=== PATIENT | male | born 1980 | race American Indian/Alaskan Native ===

== ENCOUNTER 2021-03-24 15:06 | Emergency (ER) | payer SELFPAY | END 2021-03-24 15:11 | disposition left against medical advice (07) | LOC: ED 15:06 | DX: M79.605 Pain in left leg (principal); Z53.21 Procedure and treatment not carried out due to patient leaving prior to being seen by health care provider ==

== ENCOUNTER 2021-03-24 22:31 | Emergency (ER) | payer SELFPAY ==
[2021-03-24 23:34] VITALS: BP 121/90
[2021-03-25] MEDS ORDERED: HYDROcodone/ACETAMINOPHEN 5-325 MG TAB PO ONE (03:46)
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
== END 2021-03-25 05:26 | disposition home or self-care (01) ==
LOC: ED 22:31
DX: N39.0 Urinary tract infection, site not specified (principal); F25.0 Schizoaffective disorder, bipolar type; R10.9 Unspecified abdominal pain; Z79.899 Other long term (current) drug therapy; V09.9XXA Pedestrian injured in unspecified transport accident, initial encounter; Y92.410 Unspecified street and highway as the place of occurrence of the external cause; Y93.89 Activity, other specified; Y99.8 Other external cause status

== ENCOUNTER 2021-04-03 00:40 | Emergency (ER) | payer SELFPAY ==
[2021-04-03] MEDS ORDERED: LIDOCAINE (1%) 10 MG/1 ML VIAL 20 ML MDV INFILTRATI ONE (05:05)
[2021-04-03] MEDS ORDERED: IBUPROFEN 600 MG TAB PO ONE (05:05)
[2021-04-03] MEDS ORDERED: TETANUS,DIPH,PERTUSS(ACELL) VACCINE 0.5 ML SYRINGE IM ONE (05:05)
[2021-04-03 05:07] VITALS: BP 141/98
[2021-04-03] MEDS ORDERED: NEOMY 3.5 MG/BACIT 400 UNITS/POLY B 5000 UNITS/GM OINT PACKET TP ONE ×2 (07:02)
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
== END 2021-04-03 07:45 | disposition home or self-care (01) ==
LOC: ED 00:40
DX: S61.210A Laceration without foreign body of right index finger without damage to nail, initial encounter (principal); S61.212A Laceration without foreign body of right middle finger without damage to nail, initial encounter; X99.1XXA Assault by knife, initial encounter; Y93.89 Activity, other specified; Y92.89 Other specified places as the place of occurrence of the external cause; Y99.8 Other external cause status
CPT/HCPCS: 12042; 90471; 90715; 99283; A6250

== ENCOUNTER 2021-04-20 14:24 | Emergency (ER) | payer SELFPAY ==
[2021-04-20 14:53] VITALS: BP 138/93
== END 2021-04-20 15:45 | disposition home or self-care (01) ==
LOC: ED 14:24
DX: Z00.8 Encounter for other general examination (principal); Z53.21 Procedure and treatment not carried out due to patient leaving prior to being seen by health care provider

== ENCOUNTER 2021-04-20 16:32 | Emergency (ER) | payer SELFPAY ==
--- NOTE | 2021-04-20 19:18 | Event Note ---
ED Screening Note ED Screening Note: pt presents with right middle finger pain, difficulty with ROM and swelling he had a laceration repair he did not take antibiotics all sutures removed concern for infection This initial assessment/diagnostic orders/clinical plan/treatment(s) is/are subject to change based on patients health status, clinical progression and re- assessment by fellow clinical providers in the ED. Further treatment and workup at subsequent clinical providers discretion. Patient/guardian urged not to elope from the ED as their condition may be serious if not clinically assessed and managed. Initial orders include: labs, xr
--- NOTE | 2021-04-20 19:59 | XRay Report ---
RIGHT HAND 3 VIEWS INDICATION: right middle finger swelling, pain with ROM. COMPARISON: No relevant prior imaging study available. FINDINGS: There is a mildly displaced oblique fracture through the base of the distal phalanx of the right long finger. No definite intra-articular extension is seen. There is soft tissue swelling in the long finger with probable laceration superficially along the vol ar aspect of the long finger. This could be artifact related to a skinfold. No foreign bodies. No significant degenerative changes. IMPRESSION: 1. Long finger distal phalanx fracture as above. Signer Name: Blas Alexander MD Signed: 04/20/2021 7:54 PM Workstation Name: [id number]
[2021-04-20 20:04] LABS: Basophils # (Auto) 0.1 K/mm3 (0.0-0.1); Eosinophils # (Auto) 0.1 K/mm3 (0.0-0.4); Eosinophils % (Auto) 1.2 % (0.0-4.3); Hematocrit 47.3 % (35.5-45.6); Hemoglobin 16.1 gm/dl (11.8-15.2); Lymphocytes # (Auto) 2.3 K/mm3 (1.2-5.4); Lymphocytes % (Auto) 28.4 % (13.4-35.0); Mean Corpuscular HGB Conc 34 % (32-34); Mean Corpuscular Volume 95 fl (84-94); Monocytes # (Auto) 0.4 K/mm3 (0.0-0.8); Monocytes % (Auto) 5.4 % (0.0-7.3); Platelet Count 335 K/mm3 (140-440); Red Blood Count 4.98 M/mm3 (3.65-5.03); Red Cell Distribution Width 14.7 % (13.2-15.2)
[2021-04-20 20:20] LABS: Alanine Aminotransferase 17 units/L (7-56); Albumin 4.6 g/dL (3.9-5); BUN/Creatinine Ratio 16; Blood Urea Nitrogen 13 mg/dL (9-20); Calcium 10.1 mg/dL (8.4-10.2); Hemolysis Index 9
[2021-04-20] MEDS ORDERED: KETOROLAC 60 MG/2 ML INJ IM STA (23:51)
[2021-04-20] MEDS ORDERED: CLINDAMYCIN 150 MG/ML 2 ML VIAL IM ONE (23:51)
--- NOTE | 2021-04-21 00:01 | Emergency Department Report ---
Upper Extremity - HPI Chief Complaint: Pain General Stated Complaint: SUTURE REMOVAL Time Seen by Provider: 04/20/21 19:00 Upper Extremity: Right Index Finger Mechanism: Other Symptoms: Yes Pain with Movement, Yes Limited Range of Movement, Yes Swelling, No Numbness, No Weakness, No Bruising/Ecchymosis, No Laceration or Abrasion Other History: 40-year-old -[place] male presents emerge department for suture removal which was sustained secondary to a laceration a few days ago during that time he was advised to go probably get antibiotics which he failed to obtain. Reports no no dull throbbing pain but no wound discharge ports no fever chills or sweats. No numbness or tingling. Pain is worse with palpation and range of motion sutures are in place and removed by the triage midlevel. ED Review of Systems ROS: Stated complaint: SUTURE REMOVAL Other details as noted in HPI Comment: All other systems reviewed and negative ED Past Medical Hx - Past Medical History Hx Psychiatric Treatment: Yes (schizophrenia PTSD Bipolar) - Social History Smoking Status: Never Smoker Substance Use Type: None - Medications Home Medications: Home Medications Medication Instructions Recorded Confirmed Last Taken Type Naproxen [EC-Naproxen] 500 mg PO BID PRN #30 tablet. 03/25/21 Unknown Rx Ibuprofen [Motrin] 600 mg PO Q8H PRN #30 tablet 04/03/21 Unknown Rx Sulfamethoxazole/Trimethoprim 1 each PO Q12H #20 tablet 04/03/21 Unknown Rx [Bactrim DS TAB] traMADoL [Ultram] 50 mg PO Q6HR PRN #12 tablet 04/03/21 Unknown Rx Clindamycin [Clindamycin CAP] 300 mg PO Q6H #40 capsule 04/20/21 Unknown Rx Ketorolac [Toradol] 10 mg PO Q6H PRN #15 tablet 04/20/21 Unknown Rx Upper Extremity Exam - Exam General: Vital signs noted. No distress. Alert and acting appropriately. Head and Torso: No HEENT Abnormality, No Neck Tenderness, No Chest/Lungs Abnormality, No Abdominal Tenderness, No Back Tenderness Shoulder Exam: Yes Normal Range of Motion in Shoulder, No Shoulder Tenderness, No Clavicle Tenderness, No Shoulder Deformity, No AC Joint Tenderness Arm Exam: No Arm/Humerus Tenderness, No Arm Deformity Elbow: No Elbow Tenderness, No Normal Range of Motion in Elbow, No Elbow Deformity Forearm: No Forearm Tenderness, No Forearm Deformity, No Pain with Pronation, No Pain with Supination Wrist: Yes Normal ROM in Wrist, No Wrist Tenderness, No Wrist Deformity, No Snuffbox Tenderness, No Pain with Axial Thumb Compression Hand: Yes Hand Tenderness (Tenderness to the index finger sutures are removed no significant wound dehiscence pulses 2+ capillary refill resolved are brisk there is an area of infection that he did he is able to flex and extend the finger near full with some some discomfort he thinks finger is not rigid there is some is some some swelling but is not maximally swollen. No lymphangitis is noted. Pulses are 2+ capillary refills are brisk.), Yes Normal ROM in Digit(s), No Hand Deformity, No Digit Tenderness, No Digit(s) Deformity, No Tendon Dysfunction CMS Exam: No Broken Skin, No Normal Distal Pulses, No Normal Capillary Refill, No Normal Distal Sensation ED Medical Decision Making - Lab Data Result diagrams: 04/20/21 19:36 04/20/21 19:36 - Medical Decision Making 40-year-old male with asthma department status post open fracture/laceration to the index finger with minimal antibiotics taken with ADD complication evident infection that is here today but Kan[place] signs are not present no current infectious shoulder tenosynovitis no evidence of any gonococcal infection either. We will start patient on clindamycin here in the emergency department and outpatient having a follow-up with wound reevaluation is able to days which was discussed with Mr. Foster and he did express an understanding. Critical care attestation.: If time is entered above; I have spent that time in minutes in the direct care of this critically ill patient, excluding procedure time. ED Disposition Clinical Impression: Finger infection, Encounter for removal of sutures Disposition: DC-01 TO HOME OR SELFCARE Is pt being admited?: No Does the pt Need Aspirin: No Condition: Stable Instructions: Incision Care, Adult, Fingertip Infection Prescriptions: Clindamycin [Clindamycin CAP] 300 mg PO Q6H #40 capsule Ketorolac [Toradol] 10 mg PO Q6H PRN #15 tablet PRN Reason: Pain Referrals: KAITLYNN HUTCHINSON MD [Primary Care Provider] - 3-5 Days JEROMY MORALES MD [Staff Physician] - 3-5 Days [facility] [Provider Group] - 3-5 Days
[2021-04-21 01:45] VITALS: BP 115/66
== END 2021-04-21 01:48 | disposition home or self-care (01) ==
LOC: ED 16:32
DX: L08.9 Local infection of the skin and subcutaneous tissue, unspecified (principal); F25.0 Schizoaffective disorder, bipolar type; Z79.899 Other long term (current) drug therapy
CPT/HCPCS: 36415; 73130; 80053; 82140; 85025; 96372; 99283; J1885

== ENCOUNTER 2021-06-12 15:13 | Emergency (ER) | payer SELFPAY ==
[2021-06-12 16:10] VITALS: BP 120/89
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
== END 2021-06-12 19:07 | disposition home or self-care (01) ==
LOC: ED 15:13
DX: R20.8 Other disturbances of skin sensation (principal); M25.641 Stiffness of right hand, not elsewhere classified
CPT/HCPCS: 99281

== ENCOUNTER 2021-08-01 00:18 | Emergency (ER) | payer SELFPAY ==
[2021-08-01 00:23] VITALS: BP 129/88
--- NOTE | 2021-08-01 01:06 | Emergency Department Report ---
HPI - General Chief Complaint: Extremity Injury, Lower Time Seen by Provider: 08/01/21 00:52 - HPI HPI: MSE 7 The patient is a 40-year-old male present with a chief complaint of right great toe pain. Patient states earlier today he was helping a friend move a heavy wooden table when it slipped and fell landing on his right great toe. Patient complains of pain. Patient states he had a shoe on at the time. The patient came to the emergency department via bus ED Past Medical Hx - Past Medical History Hx Psychiatric Treatment: Yes (schizophrenia PTSD Bipolar) - Surgical History Additional Surgical History: right hand sx - Family History Family history: no significant - Social History Smoking Status: Never Smoker Substance Use Type: None (Denies illicit drug use), Alcohol (Occasional) - Medications Home Medications: Home Medications Medication Instructions Recorded Confirmed Last Taken Type Naproxen [EC-Naproxen] 500 mg PO BID PRN #30 tablet. 03/25/21 Unknown Rx Ibuprofen [Motrin] 600 mg PO Q8H PRN #30 tablet 04/03/21 Unknown Rx Sulfamethoxazole/Trimethoprim 1 each PO Q12H #20 tablet 04/03/21 Unknown Rx [Bactrim DS TAB] traMADoL [Ultram] 50 mg PO Q6HR PRN #12 tablet 04/03/21 Unknown Rx Clindamycin [Clindamycin CAP] 300 mg PO Q6H #40 capsule 04/20/21 Unknown Rx Ketorolac [Toradol] 10 mg PO Q6H PRN #15 tablet 04/20/21 Unknown Rx Ibuprofen [Motrin 800 MG tab] 800 mg PO Q8HR PRN #20 tablet 08/01/21 Unknown Rx traMADoL [Ultram] 50 mg PO Q6HR PRN #14 tablet 08/01/21 Unknown Rx ED Review of Systems ROS: Stated complaint: FOOT PAIN Other details as noted in HPI Constitutional: no symptoms reported Eyes: denies: eye pain ENT: denies: throat pain Respiratory: no symptoms reported Cardiovascular: denies: chest pain Endocrine: no symptoms reported Gastrointestinal: denies: abdominal pain Musculoskeletal: arthralgia Physical Exam - Physical Exam Vital Signs: Vital Signs 08/01/21 00:20 Temperature 99.7 F H Pulse Rate 77 Respiratory 17 Rate Blood Pressure 129/88 [Right] O2 Sat by Pulse 97 Oximetry Physical Exam: GENERAL: The patient is well-developed well-nourished male lying on stretcher not appearing to be in acute distress. [] HEENT: Normocephalic. Atraumatic. Extraocular motions are intact. Patient has moist mucous membranes. HEART/CARDIOVASCULAR: Regular. There is no tachycardia. 2+ right DP SKIN: There are no lacerations seen about the right great toe. There is moderate swelling at the base of the right great toe. There is no rash. There is no diaphoresis. NEURO: The patient is awake, alert, and oriented. The patient is cooperative. The patient has no focal neurologic deficits. The patient has normal speech. Patient is able to wiggle toes on right foot including the great toe but with pain MUSCULOSKELETAL: There is tenderness to palpation of the left great toe ED Course Vital Signs 08/01/21 00:20 Temperature 99.7 F H Pulse Rate 77 Respiratory 17 Rate Blood Pressure 129/88 [Right] O2 Sat by Pulse 97 Oximetry ED Medical Decision Making - Radiology Data Radiology results: report reviewed (Right foot x-ray), image reviewed (Right foot x-ray) interpreted by me: Right foot x-ray-no acute fracture seen [facility] [address] [place] [address] XRay Report Signed Patient: MODESTA CONTRERAS MR#: [id number] : 1980 Acct:[id number] Age/Sex: 40 / M ADM Date: 08/01/21 Loc: ED Attending Dr: Ordering Physician: FLOYD CASTILLO MD Date of Service: 08/01/21 Procedure(s): XR foot 3+V RT Accession Number(s): [id number] cc: FLOYD CASTILLO MD Fluoro Time In Minutes: XR foot 3+V RT INDICATION / CLINICAL INFORMATION: Great toe pain after dropping a table on foot COMPARISON: None available. FINDINGS: BONES / JOINT(S): No acute fracture or subluxation. Lisfranc interval is maintained. Mild scattered osteoarthritis of the foot. Bipartite medial great toe sesamoid noted. SOFT TISSUES: No significant abnormality. ADDITIONAL FINDINGS: None. IMPRESSION: No acute osseous findings of the right foot. Signer Name: Tato Rodrigez MD Signed: 08/01/2021 1:32 AM Workstation Name: [id number] Transcribed By: EVERTON Dictated By: TATO RODRIGEZ MD Electronically Authenticated By: TATO RODRIGEZ MD Signed Date/Time: 08/01/21131 DD/ 0 TD/TT: Print Cancel - Differential Diagnosis Toe fracture, toe contusion Critical care attestation.: If time is entered above; I have spent that time in minutes in the direct care of this critically ill patient, excluding procedure time. ED Disposition Clinical Impression: Contusion of right foot Disposition: HOME / SELF CARE / HOMELESS Is pt being admited?: No Does the pt Need Aspirin: No Condition: Stable Instructions: Foot Contusion Additional Instructions: Return to the emergency department should you develop worsening symptoms, inability to tolerate food or liquids, high fever or any other concerns Prescriptions: Ibuprofen [Motrin 800 MG tab] 800 mg PO Q8HR PRN #20 tablet PRN Reason: Pain, Moderate (4-6) traMADoL [Ultram] 50 mg PO Q6HR PRN #14 tablet PRN Reason: Pain Referrals: BIANCA MARX MD [Staff Physician] - 3-5 Days (Dr Marx is an orthopedic surgeon. Please follow-up with him for further evaluation) Time of Disposition: 01:52
--- NOTE | 2021-08-01 01:36 | XRay Report ---
XR foot 3+V RT INDICATION / CLINICAL INFORMATION: Great toe pain after dropping a table on foot COMPARISON: None available. FINDINGS: BONES / JOINT(S): No acute fracture or subluxation. Lisfranc interval is maintained. Mild scattered o steoarthritis of the foot. Bipartite medial great toe sesamoid noted. SOFT TISSUES: No significant abnormality. ADDITIONAL FINDINGS: None. IMPRESSION: No acute osseous findings of the right foot. Signer Name: Jese Rodrigez MD Signed: 08/01/2021 1:32 AM Workstation Name: [id number]
[2021-08-01] MEDS: IBUPROFEN 800 MG TAB PO ONE (01:46)
== END 2021-08-01 02:26 | disposition home or self-care (01) ==
LOC: ED 00:18
DX: S90.111A Contusion of right great toe without damage to nail, initial encounter (principal); F20.9 Schizophrenia, unspecified; F31.9 Bipolar disorder, unspecified; F43.10 Post-traumatic stress disorder, unspecified; X58.XXXA Exposure to other specified factors, initial encounter; Y93.89 Activity, other specified; Y92.89 Other specified places as the place of occurrence of the external cause; Y99.8 Other external cause status
CPT/HCPCS: 99283

== ENCOUNTER 2021-11-20 20:36 | Emergency (ER) | payer SELFPAY ==
[2021-11-20 20:45] VITALS: BP 130/81
--- NOTE | 2021-11-20 23:16 | Emergency Department Report ---
ED General Adult HPI - General Chief complaint: Skin Rash Stated complaint: RASH Source: patient Mode of arrival: Ambulatory Limitations: No Limitations - History of Present Illness Initial comments: Patient is a 41-year-old -Tajik male with a history of paranoid schizophrenia, PTSD and bipolar disorder who presents to the ED with complaint of acute onset persistent itchy painful mild erythematous maculopapular rashes with ulcerated wounds in the buttocks and lower extremities for the last 2 weeks, worse in the last 2 days. Patient states that the pain has been constant and persistent. Patient denies fever, chills, nausea and vomiting, dizziness, syncope, chest pain or shortness of breath, numbness and tingling or weakness of upper and lower extremities bilaterally. MD Complaint: Diffuse erythematous maculopapular rashes with itching -: Gradual, week(s) (2) Location: back, buttocks, lower extremity Radiation: non-radiation Severity scale (0 -10): 4 Quality: burning, aching, other (Itchy) Consistency: constant Improves with: none Worsens with: none Associated Symptoms: denies other symptoms, rash (Diffuse itchy multiple erythematous maculopapular ulcerated rashes). denies: confusion, chest pain, cough, diaphoresis, fever/chills, loss of appetite, malaise, nausea/vomiting, seizure, shortness of breath, syncope, other Treatments Prior to Arrival: none - Related Data Previous Rx's Medication Instructions Recorded Last Taken Type Naproxen [EC-Naproxen] 500 mg PO BID PRN #30 tablet. 03/25/21 Unknown Rx traMADoL [Ultram] 50 mg PO Q6HR PRN #12 tablet 04/03/21 Unknown Rx Clindamycin [Clindamycin CAP] 300 mg PO Q6H #40 capsule 04/20/21 Unknown Rx Ketorolac [Toradol] 10 mg PO Q6H PRN #15 tablet 04/20/21 Unknown Rx Ibuprofen [Motrin 800 MG tab] 800 mg PO Q8HR PRN #20 tablet 08/01/21 Unknown Rx traMADoL [Ultram] 50 mg PO Q6HR PRN #14 tablet 08/01/21 Unknown Rx Ibuprofen [Motrin 600 MG tab] 600 mg PO Q8H PRN #30 tablet 11/20/21 Unknown Rx Mupirocin [Bactroban 2% OINT] 1 applic TP TID #1 tube 11/20/21 Unknown Rx Sulfamethoxazole/Trimethoprim 1 each PO Q12H #20 tablet 11/20/21 Unknown Rx [Bactrim DS TAB] Allergies Allergy/AdvReac Type Severity Reaction Status Date / Time No Known Allergies Allergy Verified 08/01/21 00:23 ED Review of Systems ROS: Stated complaint: RASH Other details as noted in HPI Constitutional: denies: chills, fever Eyes: denies: eye pain, eye discharge, vision change ENT: denies: ear pain, throat pain Respiratory: denies: cough, shortness of breath, wheezing Cardiovascular: denies: chest pain, palpitations Endocrine: no symptoms reported Gastrointestinal: denies: abdominal pain, nausea, diarrhea Genitourinary: denies: urgency, dysuria Musculoskeletal: denies: back pain, joint swelling, arthralgia Skin: rash (Diffuse itchy erythematous maculopapular painful rashes), change in color. denies: lesions, change in hair/nails, pruritus, other Neurological: denies: headache, weakness, paresthesias Psychiatric: denies: anxiety, depression Hematological/Lymphatic: denies: easy bleeding, easy bruising ED Past Medical Hx - Past Medical History Previous Medical History?: Yes Hx Psychiatric Treatment: Yes (schizophrenia PTSD Bipolar) - Surgical History Past Surgical History?: Yes Additional Surgical History: right hand sx - Social History Smoking Status: Never Smoker Substance Use Type: None (Denies illicit drug use), Alcohol (Occasional) - Medications Home Medications: Home Medications Medication Instructions Recorded Confirmed Last Taken Type Naproxen [EC-Naproxen] 500 mg PO BID PRN #30 tablet. 03/25/21 Unknown Rx traMADoL [Ultram] 50 mg PO Q6HR PRN #12 tablet 04/03/21 Unknown Rx Clindamycin [Clindamycin CAP] 300 mg PO Q6H #40 capsule 04/20/21 Unknown Rx Ketorolac [Toradol] 10 mg PO Q6H PRN #15 tablet 04/20/21 Unknown Rx Ibuprofen [Motrin 800 MG tab] 800 mg PO Q8HR PRN #20 tablet 08/01/21 Unknown Rx traMADoL [Ultram] 50 mg PO Q6HR PRN #14 tablet 08/01/21 Unknown Rx Ibuprofen [Motrin 600 MG tab] 600 mg PO Q8H PRN #30 tablet 11/20/21 Unknown Rx Mupirocin [Bactroban 2% OINT] 1 applic TP TID #1 tube 11/20/21 Unknown Rx Sulfamethoxazole/Trimethoprim 1 each PO Q12H #20 tablet 11/20/21 Unknown Rx [Bactrim DS TAB] ED Physical Exam - General Limitations: No Limitations General appearance: alert, in no apparent distress - Head Head exam: Present: atraumatic, normocephalic, normal inspection - Eye Eye exam: Present: normal appearance, PERRL, EOMI Pupils: Present: normal accommodation - ENT ENT exam: Present: normal exam, normal orophraynx, mucous membranes moist, TM's normal bilaterally, normal external ear exam - Neck Neck exam: Present: normal inspection, full ROM. Absent: tenderness - Respiratory Respiratory exam: Present: normal lung sounds bilaterally. Absent: respiratory distress, wheezes, rales, chest wall tenderness, accessory muscle use, decreased breath sounds, prolonged expiratory - Cardiovascular Cardiovascular Exam: Present: regular rate, normal rhythm, normal heart sounds. Absent: systolic murmur, diastolic murmur, rubs, gallop - GI/Abdominal GI/Abdominal exam: Present: soft, normal bowel sounds. Absent: tenderness, guarding, hyperactive bowel sounds, organomegaly - Extremities Exam Extremities exam: Present: normal inspection, full ROM, normal capillary refill. Absent: tenderness - Back Exam Back exam: Present: normal inspection, full ROM. Absent: tenderness, CVA tenderness (R), CVA tenderness (L), muscle spasm, paraspinal tenderness, vertebral tenderness - Neurological Exam Neurological exam: Present: alert, oriented X3, CN II-XII intact, normal gait, reflexes normal - Psychiatric Psychiatric exam: Present: normal affect, normal mood - Skin Skin exam: Present: warm, dry, intact, rash (Diffuse erythematous tender ulcerated rashes and open wounds), erythema. Absent: normal color, pallor, abrasion ED Course Vital Signs 11/20/21 20:44 Temperature 97.9 F Pulse Rate 88 Respiratory 16 Rate Blood Pressure 130/81 [Right] O2 Sat by Pulse 100 Oximetry ED Medical Decision Making - Medical Decision Making This is a 41-year-old -[place]aj[place] male with a history of paranoid schizophrenia, PTSD and bipolar disorder who presents to the ED with complaint of acute onset persistent itchy painful mild erythematous maculopapular rashes with ulcerated wounds in the buttocks and lower extremities for the last 2 weeks, worse in the last 2 days. Patient states that the pain has been constant and persistent. In the ED, patient is alert and oriented x3 and is not in any distress. Patient was discharged home on medications based on the history and physical exam findings, patient was advised to follow-up with his primary care physician in 7 to 10 days for reevaluation or return to the ED immediately if symptoms get worse. - Differential Diagnosis Acute folliculitis; cutaneous abscess; cellulitis Critical care attestation.: If time is entered above; I have spent that time in minutes in the direct care of this critically ill patient, excluding procedure time. ED Disposition Clinical Impression: Acute folliculitis, Cellulitis and abscess of buttock Disposition: 01 HOME / SELF CARE / HOMELESS Is pt being admited?: No Does the pt Need Aspirin: No Condition: Stable Instructions: Cellulitis, Adult, [id number], Skin Abscess, [id number], Folliculitis Additional Instructions: Take medication with food, drink plenty of fluids and follow-up with your primary care physician in 7 to 10 days for reevaluation. Return to the ED immediately if symptoms get worse. Prescriptions: Sulfamethoxazole/Trimethoprim [Bactrim DS TAB] 1 each PO Q12H #20 tablet Mupirocin [Bactroban 2% OINT] 1 applic TP TID #1 tube Ibuprofen [Motrin 600 MG tab] 600 mg PO Q8H PRN #30 tablet PRN Reason: Pain Referrals: [facility] [Provider Group] - 7-10 days Forms: Work/School Release Form(ED) Time of Disposition: 23:17 Print Language: LEBANESE
== END 2021-11-21 00:04 | disposition home or self-care (01) ==
LOC: ED 20:36
DX: L66.2 Folliculitis decalvans (principal); L03.317 Cellulitis of buttock
CPT/HCPCS: 99282

== ENCOUNTER 2021-11-28 | Emergency (ER) | payer SELFPAY ==
--- NOTE | 2021-11-28 06:55 | Emergency Department Report ---
ED Psych HPI - General Chief Complaint: Animal Bite Stated Complaint: POSS BED BUGS Time Seen by Provider: 11/28/21 06:34 Source: patient, EMS Mode of arrival: Ambulatory - History of Present Illness Initial Comments: Patient is 41 years old male with history of bipolar and PTSD. Patient presented to the ER stating that he needed mental and physical evaluation. Patient stated that he has been hearing voices and seeing things but not today. He also reported that he feels like something is crawling on his skin and when he started scratching it he will see it and then it disappeared. Patient denied any suicidal. MD Complaint: altered mental status -: days(s) Associated Psychiatric Symptoms: visual hallucinations, delusions Quality: constant Associated Symptoms: denies other symptoms - Related Data Previous Rx's Medication Instructions Recorded Last Taken Type Naproxen [EC-Naproxen] 500 mg PO BID PRN #30 tablet. 03/25/21 Unknown Rx traMADoL [Ultram] 50 mg PO Q6HR PRN #12 tablet 04/03/21 Unknown Rx Clindamycin [Clindamycin CAP] 300 mg PO Q6H #40 capsule 04/20/21 Unknown Rx Ketorolac [Toradol] 10 mg PO Q6H PRN #15 tablet 04/20/21 Unknown Rx Ibuprofen [Motrin 800 MG tab] 800 mg PO Q8HR PRN #20 tablet 08/01/21 Unknown Rx traMADoL [Ultram] 50 mg PO Q6HR PRN #14 tablet 08/01/21 Unknown Rx Ibuprofen [Motrin 600 MG tab] 600 mg PO Q8H PRN #30 tablet 11/20/21 Unknown Rx Mupirocin [Bactroban 2% OINT] 1 applic TP TID #1 tube 11/20/21 Unknown Rx Sulfamethoxazole/Trimethoprim 1 each PO Q12H #20 tablet 11/20/21 Unknown Rx [Bactrim DS TAB] Citalopram [celeXA] 20 mg PO QDAY 30 Days #30 tablet 11/28/21 Unknown Rx OLANzapine [ZyPREXA] 10 mg PO QHS 30 Days #30 11/28/21 Unknown Rx Allergies Allergy/AdvReac Type Severity Reaction Status Date / Time No Known Allergies Allergy Verified 08/01/21 00:23 ED Review of Systems ROS: Stated complaint: POSS BED BUGS Other details as noted in HPI Comment: All other systems reviewed and negative Constitutional: denies: chills, fever Respiratory: denies: cough, shortness of breath, SOB with exertion Cardiovascular: denies: chest pain, palpitations Gastrointestinal: denies: abdominal pain, nausea, vomiting Musculoskeletal: denies: back pain Neurological: denies: headache, weakness, numbness, paresthesias, confusion Psychiatric: auditory hallucinations, visual hallucinations ED Past Medical Hx - Past Medical History Hx Psychiatric Treatment: Yes (schizophrenia PTSD Bipolar) - Surgical History Additional Surgical History: right hand sx - Social History Smoking Status: Never Smoker Substance Use Type: None (Denies illicit drug use), Alcohol (Occasional) - Medications Home Medications: Home Medications Medication Instructions Recorded Confirmed Last Taken Type Naproxen [EC-Naproxen] 500 mg PO BID PRN #30 tablet. 03/25/21 Unknown Rx traMADoL [Ultram] 50 mg PO Q6HR PRN #12 tablet 04/03/21 Unknown Rx Clindamycin [Clindamycin CAP] 300 mg PO Q6H #40 capsule 04/20/21 Unknown Rx Ketorolac [Toradol] 10 mg PO Q6H PRN #15 tablet 04/20/21 Unknown Rx Ibuprofen [Motrin 800 MG tab] 800 mg PO Q8HR PRN #20 tablet 08/01/21 Unknown Rx traMADoL [Ultram] 50 mg PO Q6HR PRN #14 tablet 08/01/21 Unknown Rx Ibuprofen [Motrin 600 MG tab] 600 mg PO Q8H PRN #30 tablet 11/20/21 Unknown Rx Mupirocin [Bactroban 2% OINT] 1 applic TP TID #1 tube 11/20/21 Unknown Rx Sulfamethoxazole/Trimethoprim 1 each PO Q12H #20 tablet 11/20/21 Unknown Rx [Bactrim DS TAB] Citalopram [celeXA] 20 mg PO QDAY 30 Days #30 tablet 11/28/21 Unknown Rx OLANzapine [ZyPREXA] 10 mg PO QHS 30 Days #30 11/28/21 Unknown Rx ED Physical Exam - General Limitations: No Limitations General appearance: alert, in no apparent distress - Head Head exam: Present: atraumatic, normocephalic, normal inspection - Eye Eye exam: Present: normal appearance - ENT ENT exam: Present: normal exam, normal orophraynx, mucous membranes moist - Neck Neck exam: Present: normal inspection, full ROM. Absent: tenderness, meningismus - Respiratory Respiratory exam: Present: normal lung sounds bilaterally - Cardiovascular Cardiovascular Exam: Present: regular rate, normal rhythm, normal heart sounds - GI/Abdominal GI/Abdominal exam: Present: soft, normal bowel sounds. Absent: distended, tenderness, guarding, rebound, rigid, organomegaly, mass, bruit, pulsatile mass, hernia - Extremities Exam Extremities exam: Present: full ROM, normal capillary refill. Absent: tenderness - Back Exam Back exam: Absent: CVA tenderness (R), CVA tenderness (L) - Neurological Exam Neurological exam: Present: alert, oriented X3, CN II-XII intact, normal gait, reflexes normal. Absent: motor sensory deficit - Psychiatric Psychiatric exam: Present: normal mood. Absent: suicidal ideation - Skin Skin exam: Present: warm, intact, other (Multiple skin scratches.) ED Course Vital Signs 11/28/21 11/28/21 00:45 06:00 Temperature 98.3 F 98 F Pulse Rate 86 76 Respiratory 18 18 Rate Blood Pressure 150/88 134/86 [Right] O2 Sat by Pulse 98 100 Oximetry ED Medical Decision Making - Lab Data Result diagrams: 11/28/21 07:46 11/28/21 07:46 - Medical Decision Making Patient is 41 years old male with history of bipolar and PTSD. Patient presented to the ER stating that he needed mental and physical evaluation. Patient stated that he has been hearing voices and seeing things but not today. He also reported that he feels like something is crawling on his skin and when he started scratching it he will see it and then it disappeared. Patient denied any suicidal. Labs reviewed and is unremarkable. Patient has been evaluated by our psychiatric team and advised to discharge patient home to follow-up as an outpatient. Patient is still denying any suicidal homicidal ideation. Patient is medically and psychiatrically stable for discharge. Critical care attestation.: If time is entered above; I have spent that time in minutes in the direct care of this critically ill patient, excluding procedure time. ED Disposition Clinical Impression: Bipolar 1 disorder Disposition: HOME / SELF CARE / HOMELESS Is pt being admited?: No Condition: Stable Instructions: Bipolar 2 Disorder Additional Instructions: Professional and Agency Contacts To help [facility](02/04) [place] Crisis Line: Suicide Prevention Line: Crisis Text Line: Text START to [phone] Emergency: 911 Outpatient COMMUNITY Behavioral Health Resources: [place]: [facility] [address] [place], [place] [address] [place]: [facility] [address] [place] [address] [place]: [facility] - [address] [place] [address] Sunday thru Sunday - 8am - 5pm [place]: [facility] Address: [address] [place] [address] [place]: [facility] Address: [address] [place] [address] Sunday thru Sunday- 7am-2pm [facility] Address: [address] [place] [address] Sunday thru Sunday: 8:30AM-5PM Prescriptions: OLANzapine [ZyPREXA] 10 mg PO QHS 30 Days #30 Citalopram [celeXA] 20 mg PO QDAY 30 Days #30 tablet Referrals: KEENAN CALLES MD [Primary Care Provider] - 3-5 Days
[2021-11-28 08:31] LABS: Basophils % (Auto) 0.7 % (0.0-1.8); Eosinophils # (Auto) 0.1 K/mm3 (0.0-0.4); Eosinophils % (Auto) 1.4 % (0.0-4.3); Hematocrit 48.9 % (35.5-45.6); Lymphocytes # (Auto) 2.2 K/mm3 (1.2-5.4); Lymphocytes % (Auto) 38.4 % (13.4-35.0); Mean Corpuscular HGB Conc 33 % (32-34); Mean Corpuscular Volume 96 fl (84-94); Monocytes # (Auto) 0.3 K/mm3 (0.0-0.8); Monocytes % (Auto) 5.7 % (0.0-7.3); Platelet Count 244 K/mm3 (140-440); Red Blood Count 5.11 M/mm3 (3.65-5.03); Red Cell Distribution Width 14.9 % (13.2-15.2)
[2021-11-28 08:38] LABS: BUN/Creatinine Ratio 13; Blood Urea Nitrogen 12 mg/dL (9-20); Calcium 10.1 mg/dL (8.4-10.2); Hemolysis Index 15
[2021-11-28 08:44] VITALS: BP 134/86
--- NOTE | 2021-11-28 10:11 | Consultation ---
History of Present Illness - Reason for Consult Consult date: 11/28/21 Reason for consult: Mental health evaluation - History of Present Psychiatric Illness The patient is a 40 year old male with history of PTSD, bipolar, and anxiety disorder. In my interview with the patient. he is calm, alert and oriented x3. The patient reports that he is having problems with mental health and sores allover his body. On assessment the patient has generalized open sores on his body. The patient denies any current suicidal/homicidal ideation and denies hallucinations. Diagnoses: PTSD, bipolar, Anxiety Suicide attempts or Self-harm behavior: Yes Prior psychiatric hospitalizations: Yes Substance Abuse history: Cocaine Previous psychiatric medications tried:Zyprexa Risperidone, Celexa Outpatient treatment: Unknown PAST MEDICAL HISTORY: unknown Family Psychiatric History: None reported or documented SOCIAL HISTORY Marital Status: Single Living Arrangements: Lives alone Employment Status: unknown Access to guns/weapons: Denies Education: 12th grade History of Abuse: none reported Legal History: none reported REVIEW OF SYSTEMS Constitutional: Negative for weight loss ENT: Negative for stridor Respiratory: Negative for cough or hemoptysis All other systems reviewed and are negative MENTAL STATUS EXAMINATION General Appearance and Behavior: Age appropriate, good hygiene, wearing appropriate clothes, calm, cooperative Cooperation: Participating/engaged Psychomotor Behavior: Normal Mood: Ok Affect and affective range: congruent with mood Thought Process: Circumstantial Thought Content: Reality oriented Speech: Normal Suicidal Ideation: Denies Homicidal Ideation: Denies Hallucinations: Denies Delusions: None Impulse Control: Normal Insight and Judgment: Limited insight and judgment, Memory: Normal Attention: Divided Orientation: Alert, oriented Assessment and Plan (1)Schizophrenia Current Visit: Yes Status: Acute Treatment Plan Zyprexa 10mg po QHS Celexa 20mg po daily The patient needs to follow up with his outpatient psychiatrist and therapist. Continue home meds Disposition: Do not recommend psychiatric inpatient admission at this time. The manager of global will provide patient with psychiatric outpatient resources. Will sign off. Thanks Case staffed with Dr. England Medications and Allergies Medications and Allergies Allergies Allergy/AdvReac Type Severity Reaction Status Date / Time No Known Allergies Allergy Verified 08/01/21 00:23 Home Medications Medication Instructions Recorded Confirmed Last Taken Type Naproxen [EC-Naproxen] 500 mg PO BID PRN #30 tablet. 03/25/21 Unknown Rx traMADoL [Ultram] 50 mg PO Q6HR PRN #12 tablet 04/03/21 Unknown Rx Clindamycin [Clindamycin CAP] 300 mg PO Q6H #40 capsule 04/20/21 Unknown Rx Ketorolac [Toradol] 10 mg PO Q6H PRN #15 tablet 04/20/21 Unknown Rx Ibuprofen [Motrin 800 MG tab] 800 mg PO Q8HR PRN #20 tablet 08/01/21 Unknown Rx traMADoL [Ultram] 50 mg PO Q6HR PRN #14 tablet 08/01/21 Unknown Rx Ibuprofen [Motrin 600 MG tab] 600 mg PO Q8H PRN #30 tablet 11/20/21 Unknown Rx Mupirocin [Bactroban 2% OINT] 1 applic TP TID #1 tube 11/20/21 Unknown Rx Sulfamethoxazole/Trimethoprim 1 each PO Q12H #20 tablet 11/20/21 Unknown Rx [Bactrim DS TAB] Citalopram [celeXA] 20 mg PO QDAY 30 Days #30 tablet 11/28/21 Unknown Rx OLANzapine [ZyPREXA] 10 mg PO QHS 30 Days #30 11/28/21 Unknown Rx Mental Status Exam - Vital signs Last Vital Signs Temp 98 F 11/28/21 06:00 Pulse 76 11/28/21 06:00 Resp 18 11/28/21 06:00 BP 134/86 11/28/21 06:00 Pulse Ox 100 11/28/21 06:00 Results Result Diagrams: 11/28/21 07:46 11/28/21 07:46 Abnormal lab results 11/28/21 11/28/21 11/28/21 Range/Units 07:46 07:46 07:46 RBC 5.11 H (3.65-5.03) M/mm3 Hgb 16.0 H (11.8-15.2) gm/dl Hct 48.9 H (35.5-45.6) % MCV 96 H (84-94) fl Lymph % (Auto) 38.4 H (13.4-35.0) % Salicylates < 0.3 L (2.8-20.0) mg/dL Acetaminophen 5.0 L (10.0-30.0) ug/mL All other labs normal.
[2021-11-28] MEDS ORDERED: CITALOPRAM 10 MG TAB PO SCH (10:30)
== END 2021-11-28 13:30 | disposition home or self-care (01) ==
LOC: ED
DX: F31.9 Bipolar disorder, unspecified (principal); Z20.822 Contact with and (suspected) exposure to COVID-19
CPT/HCPCS: 36415; 80048; 85025; 99283; U0003; 80320; G0480